=== PATIENT | male | born 1940 | race Caucasian/White ===

== ENCOUNTER 2017-05-10 10:28 | Emergency (ER) | payer MEDICARE, OTHER ==
[2017-05-10 11:25] VITALS: BP 159/97
--- NOTE | 2017-05-10 12:00 | UC ---
Lower Extremity/Ankle HPI - HPI Summary HPI Summary: 76 y/o female present to the urgent care c/o Rt knee swelling and pain for the past 2 days while hunting. Pt reports he lives in [place] and he is visiting for the deer hunting season. He states swelling was worse yesterday, in the lateral and posterior aspect of his Rt knee. Mild pain 2/10. He applied ice last night and this morning his knee was better. He has Hx of a-fib and venous insufficiency. He was [place]5 hrs [place] hours standing. Pt denies fever, SOB, efren pain, chest pain, abdominal pain, N/V/D, Hx of gout, Hx of tick bites. Pt has not taking anything to alleviate symptoms. - History of Current Complaint Chief Complaint: UCLowerExtremity Stated Complaint: RIGHT KNEE PAIN Time Seen by Provider: 05/10/17 11:57 Hx Obtained From: Patient Onset/Duration: Gradual Onset, Lasting Days - 2 days, Still Present Severity Initially: Moderate Severity Currently: Mild Pain Intensity: 2 Pain Scale Used: 0-10 Numeric Aggravating Factor(s): Standing, Ambulation Alleviating Factor(s): Rest Able to Bear Weight: Yes - Risk Factors Gout Risk Factors: Age Over 40, Male, Hypertension, Peripherial Vascular Disease DVT Risk Factors: Recent Travel Septic Arthritis Risk Factor: Negative - Allergies/Home Medications Allergies/Adverse Reactions: Allergies Allergy/AdvReac Type Severity Reaction Status Date / Time Sulfa Antibiotics Allergy Intermediate Swelling Verified 05/10/17 11:25 Home Medications: Home Medications Atorvastatin* [Lipitor 10 MG*] 10 mg PO 1700 05/10/17 [History Confirmed ] Diltiazem CD CAP* [Cardizem CD CAP*] 120 mg PO DAILY 05/10/17 [History Confirmed 05/10/17] Warfarin TAB(*) [Coumadin TAB(*)] 5 mg PO DAILY 05/10/17 [History Confirmed ] PMH/Surg Hx/FS Hx/Imm Hx Previously Healthy: Yes Endocrine History: Dyslipidemia Cardiovascular History: Hypertension, Atrial Fibrillation Other Cardiovascular History: PDA - Surgical History Surgery Procedure, Year, and Place: femoralpopliteal bypass surgery - Family History Known Family History: Positive: Cardiac Disease, Hypertension Family History: Stroke - Social History Occupation: Retired Lives: With Family Alcohol Use: Daily Substance Use Type: None Smoking Status (MU): Former Smoker Type: Cigarettes Length of Time of Smoking/Using Tobacco: approx 40 yrs Have You Smoked in the Last Year: No When Did the Patient Quit Smoking/Using Tobacco: 2006 Review of Systems Constitutional: Negative Skin: Negative Eyes: Negative ENT: Negative Respiratory: Negative Cardiovascular: Negative Gastrointestinal: Negative Genitourinary: Negative Motor: Negative Neurovascular: Negative Musculoskeletal: Other: - RT knee pain and swelling Neurological: Negative Psychological: Negative Is Patient Immunocompromised?: No All Other Systems Reviewed And Are Negative: Yes Physical Exam Triage Information Reviewed: Yes Vital Signs: Initial Vital Signs Temp 98 F 05/10/17 11:13 Pulse 76 05/10/17 11:13 Resp 16 05/10/17 11:13 BP 159/97 05/10/17 11:13 Pulse Ox 97 05/10/17 11:13 - Additional Comments Vital Signs Reviewed: Yes Eyes: Positive: Conjunctiva Clear - PERRLA, EOMI, fundi grossly normal ENT: Positive: Normal ENT inspection, Hearing grossly normal, Pharynx normal, TMs normal Neck: Positive: Supple, Nontender, No Lymphadenopathy Respiratory: Positive: Chest nontender, Lungs clear, Normal breath sounds, No respiratory distress Cardiovascular: Positive: RRR, No Murmur, Pulses Normal, Brisk Capillary Refill Abdomen Description: Positive: Nontender, No Organomegaly, Soft. Negative: CVA Tenderness (R), CVA Tenderness (L) Bowel Sounds: Positive: Present Musculoskeletal: Positive: Strength Intact, No Edema, RT Knee: Pt is able to bear weight and ambulate with limping. No surface trauma, mild medial and lateral soft tissue swelling of RT knee with mild effusion. No overlying erythema. The RT knee is without obvious asymmetry or deformity when compared with the LF knee. Decreased ROM of RT knee due to pain. Mild tenderness to palpation of the patella with mild effusion .No tenderness over the infrapatellar tendon. No tenderness over the medial joint line, No tenderness over the medial or lateral tibial plateaus. No tenderness over the proximal fibular head, No tenderness, fullness or mass of the popliteal fossa. Mild point quadriceps tenderness. No laxity of the ACL. PCL, MCL, or LCL. no collateral ligament laxity to valgus or varus stress. Negative Daniel/Drawer sign. Negative Ivelisse. Distal motor and neurovascular status intact. Neurological Exam: Normal Psychological Exam: Normal Skin Exam: Normal Lower Extremity Course/Dx - Course Course Of Treatment: 76 y/o female present to the urgent care c/o Rt knee swelling and pain for the past 2 days while hunting. Pt reports he lives in [place] and he is visiting for the deer hunting season. He states swelling was worse yesterday, in the lateral and posterior aspect of his Rt knee. Mild pain 2 /10. He applied ice last night and this morning his knee was better. He has Hx of a-fib and venous insufficiency. He [place]. Pt denies fever, SOB, efren pain, chest pain, abdominal pain, N/V/ D, Hx of gout, Hx of tick bites. Pt has not taking anything to alleviate symptoms. Hx obtained. LF knee X-ray ordered. Impression:Small effusion and degenerative changes of RT knee w/ osteophyte formation along the medial and lateral margines of patella and suprapatella joint effusion. Incidental finding of calcified atherosclerosis of the distal SFA and popliteal artery. Pt has Hx of PDF and Popliteal femoral bypass surgery. Dr Brush consulted on Pt's symptoms and he recomended BW r/o Lyme disease, gout, RA. However Pt decline blood work since he will be returning to [place] on Friday and he will f/u with his PCP there for BW. Pt strongly advised to the importance to do BW and further management. Pt's knee immobilized w/ jose bandage and Rx Tyleonol PO for pain and swelling. Advised RICE. Avoid strenuous exercise or standing for long period of time while hunting.if symptoms worsen advised to go immediately to the ER for further work up. Pt's BP elevated despite taking his HTN medication, advised to decrease salt in his diet, monitor BP and f/u with PCP for further management. PT understood and agreed with D/C instructions. Left the clinicn hemodynamically stable, A&OX3 - Differential Dx/Diagnosis Differential Diagnosis/HQI/PQRI: Arthritis, Bursitis, Fracture (Closed), Gout, Phlebitis, Septic Arthritis, Sprain, Strain, Tendonitis, Tenosynovitis, Other Provider Diagnoses: 1- Acute RT knee pain and swelling. 2-RT knee osteoarthritis. 2-Uncontrolled HTN - Physician Notifications Discussed Patient Care With: Archie Brush - Dr Brush agreed with plan of care Discharge - Discharge Plan Condition: Stable Disposition: HOME Prescriptions: Acetaminophen TAB* [Tylenol TAB*] 650 mg PO Q4H PRN #30 tab PRN Reason: Pain Patient Education Materials: Osteoarthritis (ED), Swollen Knee Joint (ED), Low Sodium Diet (ED) Referrals: [facility] [place] [facility] [Outside] - If Needed Additional Instructions: 1-Please take medications as directed to alleviate pain and swelling. 2-Please apply ice, keep your Rt knee immobilized with the jose bandage.Avoid standing for long period of time, avoid strenuous exercise 3- Please f/u with your PCP on Friday when you return home for blood work to r /o Rheumatoid arthritis, Arthirtis, Lyme disease, gout etc. If not improvement of symptoms for further evaluation and treatment. 4- If worsening symptoms please go immediately to the ER for further management. 5- Your BP is elevated today, please take medication, decrease salt in your diet and monitor BP at home, if it continue to be elevated please f/u with your PCP for further management
--- NOTE | 2017-05-10 12:37 | RAD ---
INDICATION: Right knee pain and swelling COMPARISON: None TECHNIQUE: 4 view radiograph of the right knee. FINDINGS: The visualized bones are well-corticated and properly aligned. Degenerative changes include medial greater than lateral height loss of the compartments, sharpening of the medial tibial spine and mild narrowing of the patellofemoral joint on the lateral view. On the sunrise view there is osteophyte formation along the medial and lateral margins of the patella. There is a small suprapatellar joint effusion. There is no acute fracture, dislocation or other focal bony abnormality. Incidentally noted is calcified atherosclerosis of the distal SFA and popliteal arteries. IMPRESSION: 1. Small joint effusion and degenerative changes of the right knee as described above. 2. Incidentally noted is calcified atherosclerosis of the visualized superficial femoral artery and popliteal arteries. Please correlate to any signs or symptoms of right lower extremity arterial insufficiency. If the patient's symptoms persist, follow-up imaging is recommended.
== END 2017-05-10 13:17 | disposition home or self-care (01) ==
LOC: UCCORT 10:28
DX: M25.561 Pain in right knee (principal); M25.461 Effusion, right knee; M17.11 Unilateral primary osteoarthritis, right knee; I70.201 Unspecified atherosclerosis of native arteries of extremities, right leg; I10 Essential (primary) hypertension; E78.5 Hyperlipidemia, unspecified; I48.91 Unspecified atrial fibrillation; Z79.01 Long term (current) use of anticoagulants; I99.8 Other disorder of circulatory system; Z88.2 Allergy status to sulfonamides; Z87.891 Personal history of nicotine dependence
CPT/HCPCS: 99202; G0463